=== PATIENT | male | born 1980 | race Caucasian/White ===

== ENCOUNTER 2018-09-30 07:11 | Emergency (ER) | payer SELFPAY ==
[2018-09-30 07:19] VITALS: BP 135/84
[2018-09-30] MEDS ORDERED: TETRACAINE HCL 0.5% OPH SOLN 4 ML ONE (08:04)
[2018-09-30] MEDS ORDERED: TETRACAINE HCL 0.5% OPH SOLN 4 ML OS ONE (08:05)
--- NOTE | 2018-09-30 08:07 | ER Document Report ---
ED General - General Chief Complaint: Eye Pain Stated Complaint: EYE PAIN Time Seen by Provider: 09/30/18 07:52 Primary Care Provider: JERRY GANDARA MD [ACTIVE STAFF] - Follow up tomorrow (call for appointment today. ) Notes: Patient is a 38-year-old male that presents to the emergency department for chief complaint of left eye redness and pain. Patient states that Saturday evening he was playing video games, that he felt like something got into his eye, he tried to flush it out and rub his eye, but it only got worse. Now his entire eye feels sore, he has had some blurred vision, but no loss of vision. Denies having any pain with extraocular eye movements. Denies any fevers, chills, or drainage to the eye. He is otherwise healthy, nondiabetic. He currently rates his pain as a 4 out of 10 describes as an ache and itching sensation in his left eye. Past Medical History: Denies chronic conditions Past Surgical History: Denies major surgical history Social History: Admits to smoking cigarettes daily, rare alcohol use, denies illicit drug use. Family History: Reviewed and noncontributory for presenting illness Allergies: Reviewed, see documented allergy list. REVIEW OF SYSTEMS: Other than noted above, the 12 point review of systems was reviewed with the patient and were negative, all pertinent findings are included in the HPI. PHYSICAL EXAMINATION: Vital signs reviewed, nursing noted reviewed. GENERAL: Well-appearing, well-nourished and in no acute distress. HEAD: Atraumatic, normocephalic. EYES: Left eye is moderately injected, no visible foreign body with white light, EOMI, PERRLA. On slit-lamp exam, and fluorescein dye exam, there was a linear corneal abrasion at the 6 o'clock position with uptake of dye, no foreign body appreciated on slit-lamp exam. The right eye was unremarkable. Bilateral intraocular pressures were obtained, averaged of 15 on the right, and 11 on the left ENT: Moist mucous membranes. NECK: Normal range of motion, supple without lymphadenopathy LUNGS: Breath sounds clear to auscultation bilaterally and equal. No wheezes rales or rhonchi. HEART: Regular rate and rhythm without murmurs EXTREMITIES: Nontender, good range of motion, no pitting or edema. NEUROLOGICAL: No focal neurological deficits. Moves all extremities spontaneously Motor and sensory grossly intact on exam. PSYCH: Normal mood, normal affect. SKIN: Warm, Dry, normal turgor, no rashes or lesions noted on exposed skin TRAVEL OUTSIDE OF THE [place] IN LAST 30 DAYS: No - Related Data Allergies/Adverse Reactions: No Known Allergies Allergy (Unverified 09/30/18 07:15) Past Medical History - Social History Smoking Status: Current Every Day Smoker Chew tobacco use (# tins/day): No Frequency of alcohol use: None Drug Abuse: Methamphetamine Family History: Reviewed & Not Pertinent Patient has suicidal ideation: No Patient has homicidal ideation: No Renal/ Medical History: Denies: Hx Peritoneal Dialysis Physical Exam - Vital signs Vitals: Temp Pulse Resp BP Pulse Ox 97.5 F 66 16 135/84 H 100 09/30/18 07:16 09/30/18 07:16 09/30/18 07:16 09/30/18 07:16 09/30/18 07:16 Course - Re-evaluation Re-evalutation: Patient seen and examined, vital signs reviewed, on my exam, with evidence of eye exam, his pressures were normal, there is no foreign body, there was evidence of a linear corneal abrasion at the 6 o'clock position, over the iris, and not the pupil. His eye exam was otherwise unremarkable, the rest of his exam was unremarkable. We will treat the patient with Polytrim eyedrops, and have him follow-up with ophthalmology. - Vital Signs Vital signs: Temp Pulse Resp BP Pulse Ox 97.5 F 66 16 135/84 H 100 09/30/18 07:16 09/30/18 07:16 09/30/18 07:16 09/30/18 07:16 09/30/18 07:16 Discharge - Discharge Clinical Impression: Corneal abrasion, left Qualifiers: Encounter type: initial encounter Qualified Code(s): S05.02XA - Injury of conjunctiva and corneal abrasion without foreign body, left eye, initial encounter Condition: Stable Disposition: HOME, SELF-CARE Instructions: Corneal Abrasion ([facility]) Additional Instructions: Please use the eyedrops as directed for the next 5 days and follow-up with an pastry cook helper. Prescriptions: Polymyxin B Sulfate/Tmp [Polytrim Oph Soln 10 ml] 1 drop OS Q4H 5 Days #1 bottle Referrals: JERRY GANDARA MD [ACTIVE STAFF] - Follow up tomorrow (call for appointment today. )
== END 2018-09-30 08:31 | disposition home or self-care (01) ==
LOC: ER 07:11
DX: S05.02XA Injury of conjunctiva and corneal abrasion without foreign body, left eye, initial encounter (principal); H57.12 Ocular pain, left eye; H53.8 Other visual disturbances; W22.8XXA Striking against or struck by other objects, initial encounter; F17.210 Nicotine dependence, cigarettes, uncomplicated
CPT/HCPCS: 99283